=== PATIENT | female | born 1950 | race Caucasian/White ===

== ENCOUNTER → 2024-07-20 | Day surgery (SDC) | payer MEDICARE, OTHER ==
[2024-07-17 10:49] LABS: BASOPHILS % 0.2 % (0.0-1.0); EOSINOPHILS # (AUTO) 0.1 (0.0-0.4); EOSINOPHILS % 1.4 % (0.0-6.0); HEMATOCRIT 36.6 % (34.2-44.1); HEMOGLOBIN 10.6 g/dL (12.0-16.0); LYMPHOCYTES # (AUTO) 1.8 (1.0-3.2); LYMPHOCYTES % 33.3 % (18.0-39.1); MEAN CORPUSCULAR HEMOGLOBIN 28.6 pg (28-32); MEAN CORPUSCULAR VOLUME 98.9 fL (81-99); MONOCYTES # (AUTO) 0.5 (0.2-0.8); MONOCYTES % 8.2 % (4.4-11.3); NEUTROPHILS # (AUTO) 3.1 (2.1-6.9); NEUTROPHILS % 56.7 % (38.7-80.0); PLATELET COUNT 218 x10e3/uL (140-360); RED CELL DISTRIBUTION WIDTH 14.6 % (11.7-14.4); WHITE BLOOD COUNT 5.52 x10e3/uL (4.8-10.8)
[2024-07-17 11:10] LABS: ANION GAP 15.5 mmol/L (8-16); CALCIUM 10.2 mg/dL (8.4-10.2); CREATININE, SERUM 0.85 mg/dL (0.57-1.11); POTASSIUM 4.5 mmol/L (3.5-5.1)
[~2024-07-20] MED LIST: AMLODIPINE BESYL5 MG PO; ASPIRIN81 MG PO; ATORVASTATIN CA20 MG PO; CETIRIZINE HCL10 M1 PO; COMBIVENT RESPIM4 GM IH; EFFEXOR XR150 MG PO; FAMOTIDINE20 MG PO; FUROSEMIDE40 MG PO; L-ARGININE500 MG; LEVOTHYROXINE112 MCG PO; LOSARTAN POTAS100 MG PO; MONTELUKAST SOD10 MG PO; PANTOPRAZOLE SO40 MG PO; TIZANIDINE HCL4 MG PO
[2024-07-20] MEDS: LACTATED RINGER'S 1,000 ML ONE (06:00)
[2024-07-20] MEDS: CEFAZOLIN SODIUM 2 GM ONE (06:00)
== END | disposition home or self-care (01) ==
LOC: OR 05:11
PROVIDERS: ATTEND Orthopaedic Surgery
DX: M17.12 Unilateral primary osteoarthritis, left knee (principal); L50.9 Urticaria, unspecified; Z01.812 Encounter for preprocedural laboratory examination; Z01.818 Encounter for other preprocedural examination; Z53.8 Procedure and treatment not carried out for other reasons
CPT/HCPCS: 36415; 71046; 80048; 85025; 86850; 86900; J7121

== ENCOUNTER 2024-08-12 05:47 | Inpatient (IN) | payer MEDICARE ==
[2024-08-10 13:31] LABS: BASOPHILS % 0.4 % (0.0-1.0); EOSINOPHILS # (AUTO) 0.1 (0.0-0.4); EOSINOPHILS % 1.1 % (0.0-6.0); HEMATOCRIT 32.7 % (34.2-44.1); LYMPHOCYTES # (AUTO) 1.4 (1.0-3.2); LYMPHOCYTES % 24.5 % (18.0-39.1); MEAN CORPUSCULAR HEMOGLOBIN 28.2 pg (28-32); MEAN CORPUSCULAR HGB CONC 30.6 g/dL (31-35); MEAN CORPUSCULAR VOLUME 92.1 fL (81-99); MONOCYTES # (AUTO) 0.4 (0.2-0.8); MONOCYTES % 6.7 % (4.4-11.3); NEUTROPHILS # (AUTO) 3.8 (2.1-6.9); NEUTROPHILS % 66.9 % (38.7-80.0); PLATELET COUNT 241 x10e3/uL (140-360); RED BLOOD COUNT 3.55 x10e6/uL (3.6-5.1); RED CELL DISTRIBUTION WIDTH 14.6 % (11.7-14.4); WHITE BLOOD COUNT 5.68 x10e3/uL (4.8-10.8)
[~2024-08-12] VITALS: Ht 167.6 cm; Wt 117.9 kg
[~2024-08-12 05:47] MED LIST changes: +XOLAIR150 MG
[2024-08-12] MEDS ORDERED: CEFAZOLIN SODIUM 2 GM ONE (06:34)
[2024-08-12] MEDS: LACTATED RINGER'S 1,000 ML ONE (06:50)
[2024-08-12] MEDS ORDERED: PROPOFOL IV EMULSION 10 MG/ML 20 ML VIAL ONE ×2 (07:03→09:02)
[2024-08-12] MEDS ORDERED: ACETAMINOPHEN 1000 MG/100 ML 100 ML IV ONE (07:03)
[2024-08-12] MEDS ORDERED: LIDOCAINE HCL 2% LOCAL INJ 5 ML SDV VIAL INJ ONE (07:03)
[2024-08-12] MEDS ORDERED: SEVOFLURANE INHAL SOLN 250 ML PEN BTL ONE (07:03)
[2024-08-12] MEDS ORDERED: FENTANYL CITRATE/PF 100MCG/2 ML INJ ONE ×3 (07:03→09:54)
[2024-08-12] MEDS ORDERED: ONDANSETRON HCL INJ 2MG/ML 2ML 2 MG/ML VIAL ONE (07:03)
[2024-08-12] MEDS ORDERED: ONDANSETRON HCL INJ 2MG/ML 2ML 2 MG/ML VIAL IV PRN (07:15)
[2024-08-12] MEDS ORDERED: DOCUSATE SODIUM 100 MG CAP PO PRN ×2 (07:15→17:30)
[2024-08-12] MEDS ORDERED: DIPHENHYDRAMINE HCL INJ 50 MG/ML VIAL IV PRN (07:15)
[2024-08-12] MEDS ORDERED: BUPIVACAINE/EPI 0.5% 30ML SDV-MPF INJ ONE (07:24)
[2024-08-12] MEDS ORDERED: DEXAMETHASONE SOD PHOS INJ 4 MG/ML SDV ONE ×2 (07:24→09:07)
[2024-08-12] MEDS ORDERED: MIDAZOLAM HCL 2 MG/2 ML VIAL ONE (07:24)
[2024-08-12] MEDS ORDERED: SUGAMMADEX SODIUM 200 MG/2 ML VIAL IV ONE (08:10)
[2024-08-12] MEDS ORDERED: ALBUTEROL 90 MCG/ACT INHALER INH ONE (09:07)
[2024-08-12] MEDS ORDERED: EPHEDRINE SULFATE INJ 50 MG/ML VIAL ONE (09:07)
[2024-08-12] MEDS ORDERED: FAMOTIDINE 20 MG/2 ML VIAL IV ONE (09:07)
[2024-08-12] MEDS: FENTANYL CITRATE/PF 100MCG/2 ML INJ ONE (10:41)
[2024-08-12] MEDS: KETOROLAC TROMETHAMINE 30 MG/ML VIAL ONE (11:22)
[2024-08-12 13:47] VITALS: PULSE 75; RESP 20; O2SAT 96
[2024-08-12 15:00] VITALS: BP 124/64; PULSE 79; RESP 17; TEMP 97.4; O2SAT 100
[2024-08-12 16:00] VITALS: BP 124/69; PULSE 91; RESP 18; TEMP 97.7; O2SAT 98
[2024-08-12 16:13] VITALS: BP 125/48; PULSE 75; RESP 20; TEMP 98.4; O2SAT 96
[2024-08-12] MEDS ORDERED: SIMETHICONE 80 MG CHEW PO PRN (17:30)
[2024-08-12] MEDS ORDERED: METOPROLOL TARTRATE INJ 1 MG/ML VIAL IV PRN (17:30)
[2024-08-12] MEDS ORDERED: ALBUTEROL/IPRATROPIUM 3 ML NEB NEB PRN (17:30)
[2024-08-12] MEDS ORDERED: ACETAMINOPHEN 325 MG TAB PO PRN (17:30)
[2024-08-12 20:00] VITALS: BP 125/57; PULSE 95; RESP 20; TEMP 97.9; O2SAT 97
[2024-08-12 20:08] VITALS: PULSE 100; RESP 18; O2SAT 91
[2024-08-12] MEDS ORDERED: MELATONIN 3 MG TAB PO PRN (21:00)
[2024-08-12] MEDS: ATORVASTATIN 40 MG TAB PO SCH (21:02)
[2024-08-12] MEDS: HYDROCODONE/APAP 7.5MG-325MG 1 EA TAB PO ONE (21:37)
[2024-08-13] VITALS (8 sets, daily range): BP systolic 125–140; BP diastolic 50–69; PULSE 77–89; RESP 17–20; TEMP 96.5–98.1; O2SAT 93–100
[2024-08-13] MEDS: LEVOTHYROXINE SODIUM 75 MCG TAB PO SCH (05:15)
[2024-08-13] MEDS: HYDROCODONE/APAP 7.5MG-325MG 1 EA TAB PO PRN (05:16)
[2024-08-13 06:03] LABS: BASOPHILS % 0.1 % (0.0-1.0); HEMOGLOBIN 8.5 g/dL (12.0-16.0); LYMPHOCYTES % 11.1 % (18.0-39.1); MEAN CORPUSCULAR HGB CONC 30.4 g/dL (31-35); MEAN CORPUSCULAR VOLUME 92.1 fL (81-99); MONOCYTES # (AUTO) 0.9 (0.2-0.8); NEUTROPHILS # (AUTO) 7.1 (2.1-6.9); NEUTROPHILS % 78.5 % (38.7-80.0); PLATELET COUNT 197 x10e3/uL (140-360); RED BLOOD COUNT 3.04 x10e6/uL (3.6-5.1); RED CELL DISTRIBUTION WIDTH 14.5 % (11.7-14.4); WHITE BLOOD COUNT 9.02 x10e3/uL (4.8-10.8)
[2024-08-13 06:36] LABS: CALCIUM 8.6 mg/dL (8.4-10.2); CREATININE, SERUM 0.72 mg/dL (0.57-1.11)
[2024-08-13] MEDS ORDERED: FAMOTIDINE 20 MG TAB PO SCH (09:00)
[2024-08-13] MEDS: PANTOPRAZOLE SOD 40 MG TABEC PO SCH (09:05)
[2024-08-13] MEDS: MONTELUKAST SODIUM 10 MG TAB PO SCH (09:05)
[2024-08-13] MEDS: AMLODIPINE BESYLATE 5 MG TAB PO SCH (09:06)
[2024-08-13] MEDS: FAMOTIDINE 20 MG TAB PO SCH (09:06)
[2024-08-13] MEDS: ASPIRIN 81 MG ENTERIC COATED PO SCH (09:06)
[2024-08-13] MEDS: HYDROCODONE/APAP 10MG-325MG TAB PO PRN (09:07)
[2024-08-13] MEDS: VENLAFAXINE HCL 75 MG CAPCR PO SCH (09:07)
[2024-08-14] VITALS (8 sets, daily range): BP systolic 113–141; BP diastolic 51–63; PULSE 60–95; RESP 20; TEMP 98–99; O2SAT 92–96
[2024-08-14 06:41] LABS: BASOPHILS # (AUTO) 0.1 (0.0-0.1); BASOPHILS % 0.6 % (0.0-1.0); EOSINOPHILS % 0.3 % (0.0-6.0); HEMATOCRIT 27.2 % (34.2-44.1); HEMOGLOBIN 8.4 g/dL (12.0-16.0); LYMPHOCYTES # (AUTO) 1.2 (1.0-3.2); LYMPHOCYTES % 15.4 % (18.0-39.1); MEAN CORPUSCULAR HGB CONC 30.9 g/dL (31-35); MEAN CORPUSCULAR VOLUME 90.7 fL (81-99); MONOCYTES # (AUTO) 0.9 (0.2-0.8); MONOCYTES % 10.8 % (4.4-11.3); NEUTROPHILS # (AUTO) 5.7 (2.1-6.9); NEUTROPHILS % 72.4 % (38.7-80.0); PLATELET COUNT 196 x10e3/uL (140-360); RED CELL DISTRIBUTION WIDTH 14.7 % (11.7-14.4); WHITE BLOOD COUNT 7.93 x10e3/uL (4.8-10.8)
[2024-08-14 07:07] LABS: ANION GAP 12.8 mmol/L (8-16); CALCIUM 8.6 mg/dL (8.4-10.2); CREATININE, SERUM 0.68 mg/dL (0.57-1.11); POTASSIUM 3.8 mmol/L (3.5-5.1)
[2024-08-14 07:22] LABS: FERRITIN 50.29 ng/mL (4.63-204.00)
[2024-08-14] MEDS ORDERED: ASPIRIN EC81 MG PO (08:19)
[2024-08-14] MEDS ORDERED: ULTRAM 50MG50 MG PO (08:19)
[2024-08-14] MEDS ORDERED: TYLENOL325 MG PO (08:19)
[2024-08-14] MEDS ORDERED: Docusate Sodium PO (08:19)
[2024-08-14] MEDS ORDERED: FAMOTIDINE20 MG PO (08:19)
[2024-08-14] MEDS ORDERED: ACETAMINOPHEN-1 EAC4 PO (11:50)
== END 2024-08-14 16:00 | disposition home or self-care (01) | DRG 470 ==
LOC: OR 05:47 → PACU V 07:08 → MED/SURG3 12:00 → OBSVTOIN 08-13 08:49
PROVIDERS: ADMIT Orthopaedic Surgery; ATTEND Orthopaedic Surgery
PROC: 0SRD0J9 Replacement of Left Knee Joint with Synthetic Substitute, Cemented, Open Approach (ICD-10-PCS; principal; 2024-08-12 07:58)
DX: M17.12 Unilateral primary osteoarthritis, left knee (principal); D62 Acute posthemorrhagic anemia; I10 Essential (primary) hypertension; E78.5 Hyperlipidemia, unspecified; K21.9 Gastro-esophageal reflux disease without esophagitis; E03.9 Hypothyroidism, unspecified; G47.30 Sleep apnea, unspecified; F39 Unspecified mood [affective] disorder; F32.A Depression, unspecified; Z90.49 Acquired absence of other specified parts of digestive tract; Z90.710 Acquired absence of both cervix and uterus; Z98.84 Bariatric surgery status; Z79.890 Hormone replacement therapy
CPT/HCPCS: 36415; 80048; 82607; 82728; 83540; 84466; 85025; 86850; 86900; 94660; 94799; 99252; C1713; C1776; G0378; J0690; J1100; J1885; J2003; J2250; J2405

== ENCOUNTER → 2025-01-12 | Outpatient (REF) | payer MEDICARE ==
[~2025-01-12] MED LIST changes: +ACETAMINOPHEN-1 EAC4 PO; +ASPIRIN EC81 MG PO; +Docusate Sodium PO; +TYLENOL325 MG PO; +ULTRAM 50MG50 MG PO
[2025-01-12 12:36] LABS: BASOPHILS % 0.8 % (0.0-1.0); EOSINOPHILS % 0.5 % (0.0-6.0); LYMPHOCYTES % 32.1 % (18.0-39.1); MONOCYTES % 7.1 % (4.4-11.3); NEUTROPHILS % 59.2 % (38.7-80.0); RED CELL DISTRIBUTION WIDTH 19.0 % (11.7-14.4)
== END ==
LOC: LAB 11:53
PROVIDERS: ATTEND Orthopaedic Surgery
DX: Z96.652 Presence of left artificial knee joint (principal)
CPT/HCPCS: 36415; 85025; 86140